=== PATIENT | female | born 1975 ===

== ENCOUNTER 2021-02-22 17:05 | Emergency (ER) | payer OTHER ==
[~2021-02-22] VITALS: Ht 154.9 cm; Wt 69.9 kg
[2021-02-22] MEDS ORDERED: SYNTHROID88 MCG (17:11)
[2021-02-22] MEDS ORDERED: CAPSAICIN42.5 GM TOP (17:50)
[2021-02-22] MEDS ORDERED: ACYCLOVIR800 MG PO (17:50)
== END 2021-02-22 19:12 | disposition home or self-care (01) ==
LOC: ER 17:05
DX: B02.9 Zoster without complications (principal)